=== PATIENT | male | born 1995 | race Caucasian/White ===

== ENCOUNTER 2016-08-25 11:31 | Inpatient (IN) | payer OTHER ==
[2016-08-25 12:35] VITALS: BMI 26.3
--- NOTE | 2016-08-25 14:15 | HP ---
Admission [facility] Chief Complaint: I am here to detox. Allergies/Adverse Reactions: Allergies Allergy/AdvReac Type Severity Reaction Status Date / Time Penicillins Allergy Intermediate Hives Verified 08/25/16 12:45 History of Present Illness: pt is a 20yr old male with a history of alcohol and k2 dependence seeking detox for treatment. Exam Limitations: No Limitations - Ebola screening Have you traveled outside of the country in the last 21 days: No Have you had contact with anyone from an Ebola affected area: No Have you been sick,other than usual withdrawal symptoms: No - Review of Systems Constitutional: No Symptoms Reported EENT: reports: No Symptoms Reported Respiratory: reports: No Symptoms reported Cardiac: reports: No Symptoms Reported GI: reports: Poor Fluid Intake : reports: No Symptoms Reported Musculoskeletal: reports: No Symptoms Reported Integumentary: reports: Flushing, Sweating Neuro: reports: Tingling, Tremors Endocrine: reports: No Symptoms Reported Hematology: reports: No Symptoms Reported Psychiatric: reports: Judgement Intact, Mood/Affect Appropiate, Orientated x3, Agitated, Anxious, Depressed Other Systems: Reviewed and Negative Patient History - Patient Medical History Hx Anemia: No Hx Asthma: No Hx Chronic Obstructive Pulmonary Disease (COPD): No Hx Cancer: No Hx Cardiac Disorders: No Hx Congestive Heart Failure: No Hx Hypertension: No Hx Hypercholesterolemia: No Hx Pacemaker: No HX Cerebrovascular Accident: No Hx Seizures: No Hx Diabetes: No Hx Gastrointestinal Disorders: No Hx Liver Disease: No Hx Genitourinary Disorders: No Hx Sexually Transmitted Disorders: No Hx Renal Disease (ESRD): No Hx Thyroid Disease: No Hx Human Immunodeficiency Virus (HIV): No (negative) Hx Hepatitis C: No (negative) Hx Depression: No Hx Suicide Attempt: Yes (tried to OD on pills 2-3yrs ago, denies any S/H ideation today.) Hx Bipolar Disorder: Yes Hx Schizophrenia: No - Patient Surgical History Past Surgical History: No - PPD History Previous Implant?: Yes Documented Results: Negative w/o proof Implanted On Prior [facility] Admission?: No PPD to be Administered?: Yes - Reproductive History Patient is a Female of Child Bearing Age (11 -55 yrs old): No - Smoking Cessation Smoking history: Current every day smoker Have you smoked in the past 12 months: Yes Aproximately how many cigarettes per day: 40 Hx Chewing Tobacco Use: No Initiated information on smoking cessation: Yes 'Breaking Loose' booklet given: 08/25/16 - Substance & Tx. History Hx Alcohol Use: Yes Hx Substance Use: No Substance Use Type: Alcohol Hx Substance Use Treatment: Yes - Substances Abused Alcohol Route: Oral Frequency: Daily Amount used: vodka(1/5) Age of first use: 14 Date of Last Use: 08/25/16 K2 Route: Smoking Frequency: Daily Amount used: $7 Age of first use: 14 Date of Last Use: 08/25/16 Family Disease History - Family Disease History Family History: Denies Admission Physical Exam [facility] - Vital Signs Vital Signs: Vital Signs - 24 hr 08/25/16 12:32 Temperature 96.1 F L Pulse Rate 71 Respiratory 16 Rate Blood Pressure 120/71 - Physical General Appearance: Yes: Appropriately Dressed, Moderate Distress, Tremorous, Irritable, Sweating, Anxious HEENTM: Yes: Normal Voice Respiratory: Yes: Lungs Clear, Normal Breath Sounds, No Respiratory Distress Neck: Yes: No masses,lesions,Nodules Breast: Yes: Within Normal Limits Cardiology: Yes: Regular Rhythm, Regular Rate, S1, S2 Abdominal: Yes: Normal Bowel Sounds Genitourinary: Yes: Within Normal Limits Back: Yes: Normal Inspection Musculoskeletal: Yes: full range of Motion, Back pain Extremities: Yes: Normal Capillary Refill, Normal Inspection, Tremors Neurological: Yes: Fully Oriented, Alert, Normal Response Integumentary: Yes: Normal Color, Diaphoresis Lymphatic: Yes: Within Normal Limits - Diagnostic (1) Alcohol dependence with uncomplicated withdrawal Current Visit: Yes Status: Chronic (2) Nicotine dependence Current Visit: Yes Status: Chronic Qualifiers: Nicotine product type: cigarettes Substance use status: uncomplicated Qualified Code(s): F17.210 - Nicotine dependence, cigarettes, uncomplicated Cleared for Admission [facility] - Detox or Rehab [facility] Level of Care: Medically Managed Detox Regimen/Protocol: Librium [facility] Breath Alcohol Content Breath Alcohol Content: 0.013 Urine Drug Screen - Results Drug Screen Negative: Yes
[2016-08-25] MEDS ORDERED: MENTHOL/PHENOL 1 EACH UD MM PRN (14:23)
[2016-08-25] MEDS ORDERED: MAGNESIUM CITRATE 300 ML BOTTLE PO PRN (14:23)
[2016-08-25] MEDS ORDERED: diphenhydrAMINE HCL 50 MG CAPSULE PO PRN (14:23)
[2016-08-25] MEDS ORDERED: guaiFENesin/D-METHORPHAN HB 10 ML UNIT-DOSE CUPS PO PRN (14:23)
[2016-08-25] MEDS ORDERED: ACETAMINOPHEN 325 MG TABLET (FP) PO PRN (14:23)
[2016-08-25] MEDS ORDERED: MAG HYDROX/AL HYDROX/SIMETH 30 ML UNIT-DOSE CUP PO PRN (14:23)
[2016-08-25] MEDS ORDERED: MAGNESIUM HYDROX 2400MG/30ML ORAL SUSPENSION 30 ML CUP PO PRN (14:23)
[2016-08-25] MEDS ORDERED: hydrOXYzine PAMOATE 50 MG CAPSULE (FP) PO PRN (14:23)
[2016-08-25] MEDS ORDERED: P-EPHED 60MG/TRIPROLIDI 2.5MG TABLET PO PRN (14:23)
[2016-08-25] MEDS ORDERED: LOPERAMIDE HCL 2 MG CAPSULE PO PRN (14:23)
[2016-08-25] MEDS ORDERED: chlordiazePOXIDE HCL 25 MG CAPSULE PO PRN (14:23)
[2016-08-25] MEDS ORDERED: IBUPROFEN 400 MG TABLET (FP) PO PRN (14:23)
[2016-08-25] MEDS ORDERED: chlordiazePOXIDE HCL 25 MG CAPSULE PO ONE (14:26)
[2016-08-25] MEDS: chlordiazePOXIDE HCL 25 MG CAPSULE PO SCH ×2 (17:15→22:31)
--- NOTE | 2016-08-25 17:57 | CONSULT ---
[facility] Psychiatric Consult - Data Date of interview: 08/25/16 Admission source: [facility] Identifying data: First admission to [facility] for this 20 y/o male seeking detox treatment for alcohol and marijuana (K2) dependence.Patient is single witout children,domiciled,unemployed and dependent on his mother for financial support. Substance Abuse History: - Smoking Cessation. Smoking history: Current every day smoker. Have you smoked in the past 12 months: Yes. Aproximately how many cigarettes per day: 40. Hx Chewing Tobacco Use: No. Initiated information on smoking cessation: Yes. 'Breaking Loose' booklet given: 08/25/16. - Substance & Tx. History. Hx Alcohol Use: Yes. Hx Substance Use: No. Substance Use Type : Alcohol. Hx Substance Use Treatment: Yes. - Substances Abused. Alcohol. Route: Oral. Frequency: Daily. Amount used: vodka(1/5). Age of first use: 14. Date of Last Use: 08/25/16. K2. Route: Smoking. Frequency: Daily. Amount used: $7. Age of first use: 14. Date of Last Use: 08/25/16. Confirmed by patient. Medical History: Patient denies medical problems. Psychiatric History: Patient admits to a history of five psychiatric hospitalizations.Known to [facility].Diagnosed with Bipolar Disorder.Maintained on seroquel 200 mg/hs.Mr De Guzman reports total non- adherence to psychiatric aftercare.No current psychiatric OPD care providers.Patient informs of a suicide attempt at age 16 (means not disclosed) .Mr De Guzman is a mildly sedated historian. Physical/Sexual Abuse/Trauma History: Patient denies. Additional Comment: Drug Screen is negative. Mental Status Exam - Mental Status Exam Alert and Oriented to: Time, Place, Person Cognitive Function: Grossly Intact Patient Appearance: Well Groomed Mood: Withdrawn Affect: Constricted Patient Behavior: Sedated (lightly), Fatigued Speech Pattern: Appropriate, Delayed Voice Loudness: Moderately Soft/Quiet Thought Process: Goal Oriented Thought Disorder: Not Present Hallucinations: Denies Suicidal Ideation: Denies Homicidal Ideation: Denies Insight/Judgement: Poor Sleep: Poorly, Difficulty falling asleep Appetite: Good Muscle strength/Tone: Normal Gait/Station: Normal Psychiatric Findings - Problem List ([place] 1, 2,3) (1) Alcohol dependence with uncomplicated withdrawal Current Visit: Yes Status: Acute (2) Nicotine dependence Current Visit: Yes Status: Chronic Qualifiers: Nicotine product type: cigarettes Substance use status: uncomplicated Qualified Code(s): F17.210 - Nicotine dependence, cigarettes, uncomplicated (3) Substance induced mood disorder Current Visit: Yes Status: Acute (4) Bipolar disorder Current Visit: Yes Status: Chronic Comment: As per self-report. - Initial Treatment Plan Initial Treatment Plan: Psychoeducation is deferred (until sedation is lifted) .Detoxification in progress.Seroquel 200 mg po hs.Side effects/benefits discussed with patient.He is eager to resume this medication.Patient is in agreement with this careplan.Observation.
[2016-08-25 19:14] LABS: URINE APPEARANCE CLEAR; URINE BILIRUBIN NEGATIVE (NEGATIVE); URINE BLOOD NEGATIVE (NEGATIVE); URINE COLOR LTYELLOW; URINE GLUCOSE (UA) NEGATIVE (NEGATIVE); URINE KETONE NEGATIVE (NEGATIVE); URINE LEUK ESTERASE NEGATIVE (NEGATIVE); URINE NITRITE NEGATIVE (NEGATIVE); URINE PROTEIN NEGATIVE (NEGATIVE); URINE UROBILINOGEN NEGATIVE E.U./dl (0.2-1.0)
[2016-08-25] MEDS: THIAMINE HCL 100 MG TABLET (FP) PO SCH (22:31)
[2016-08-25 22:42] LABS: HIV 1 & 2 AB NEGATIVE; HIV 1 AGp24 NEGATIVE
[2016-08-26] MEDS: chlordiazePOXIDE HCL 25 MG CAPSULE PO SCH ×4 (05:46→22:26)
[2016-08-26 09:47] LABS: MCH 30.3 pg (25.7-33.7); MCHC 33.3 g/dl (32.0-35.9); MEAN PLT VOLUME 10.3 fl (7.5-11.1); PLATELET COUNT 159 K/MM3 (134-434); RDW 13.7 % (11.9-15.9)
[2016-08-26] MEDS: NICOTINE 21 MG/24 HOURS TOPICAL PATCH TD SCH (10:20)
[2016-08-26] MEDS: PRENATAL VITAMINS W/ FOLIC ACID TABLET (FP) PO SCH (10:20)
[2016-08-26 10:38] LABS: ALBUMIN 4.6 g/dl (3.4-5.0); ALK PHOS 55 U/L (45-117); ANION GAP 9 (8-16); BILIRUBIN,TOTAL 0.4 mg/dL (0.2-1.0); CALCIUM 9.1 mg/dL (8.5-10.1); CO2 28 mmol/L (21-32); COCKROFT - GAULT 181.43; CREATININE 0.7 mg/dL (0.7-1.3); GLUCOSE,RANDOM 78 mg/dL (74-106); SGOT/AST 12 U/L (15-37); SGPT/ALT 25 U/L (12-78); TOT PROT 7.3 g/dl (6.4-8.2)
--- NOTE | 2016-08-26 11:23 | EKG ---
Test Reason : Blood Pressure : / mmHG Vent. Rate : 070 BPM Atrial Rate : 070 BPM P-R Int : 148 ms QRS Dur : 094 ms QT Int : 402 ms P-R-T Axes : 001 065 036 degrees QTc Int : 434 ms NORMAL SINUS RHYTHM NORMAL ECG NO PREVIOUS ECGS AVAILABLE BASELINE ARTIFACT Confirmed by JOSEF KEY, ANASTACIA ([id number]) on 08/26/2016 11:22:21 AM Referred By: Confirmed By:ANASTACIA BAHENA MD
--- NOTE | 2016-08-26 11:32 | PN ---
S CIWA - CIWA Score Nausea/Vomitin-No Nausea/No Vomiting Muscle Tremors: 3 Anxiety: 4-Mod. Anxious/Guarded Agitation: 4-Moderately Restless Paroxysmal Sweats: 3 Orientation: 0-Oriented Tacttile Disturbances: 0-None Auditory Disturbances: 0-None Visual Disturbances: 0-None Headache: 0-None Present CIWA-Ar Total Score: 14 BHS Progress Note (SOAP) Subjective: Anxiety,tremors,sweating,interrupted sleep,restless. Objective: 08/26/16 11:31 Vital Signs - 8 hr 08/26/16 08/26/16 06:41 09:54 Temperature 96.6 F L 96.6 F L Pulse Rate 65 73 Respiratory 16 20 Rate Blood Pressure 103/67 101/68 Laboratory Tests 08/25/16 08/25/16 08/26/16 13:55 15:00 06:00 WBC 7.0 RBC 4.84 Hgb 14.6 Hct 44.0 MCV 91.0 MCHC 33.3 RDW 13.7 Plt Count 159 MPV 10.3 Sodium Potassium Chloride Carbon Dioxide Anion Gap BUN Creatinine Creat Clearance w eGFR Random Glucose Calcium Total Bilirubin AST ALT Alkaline Phosphatase Total Protein Albumin Urine Color Ltyellow Urine Appearance Clear Urine pH 6.0 Ur Specific [place] 1.020 Urine Protein Negative Urine Glucose (UA) Negative Urine Ketones Negative Urine Blood Negative Urine Nitrite Negative Urine Bilirubin Negative Urine Urobilinogen Negative Ur Leukocyte Esterase Negative RPR Titer HIV 1&2 Antibody Screen Negative HIV P24 Antigen Negative 08/26/16 08/26/16 06:00 06:00 WBC RBC Hgb Hct MCV MCHC RDW Plt Count MPV Sodium 139 Potassium 4.5 Chloride 102 Carbon Dioxide 28 Anion Gap 9 BUN 14 Creatinine 0.7 Creat Clearance w eGFR > 60 Random Glucose 78 Calcium 9.1 Total Bilirubin 0.4 AST 12 L ALT 25 Alkaline Phosphatase 55 Total Protein 7.3 Albumin 4.6 Urine Color Urine Appearance Urine pH Ur Specific [place] Urine Protein Urine Glucose (UA) Urine Ketones Urine Blood Urine Nitrite Urine Bilirubin Urine Urobilinogen Ur Leukocyte Esterase RPR Titer Nonreactive HIV 1&2 Antibody Screen HIV P24 Antigen labs noted Assessment: 08/26/16 11:31 Withdrawal sx. Plan: Continue detox
[2016-08-26] MEDS: THIAMINE HCL 100 MG TABLET (FP) PO SCH (22:26)
[2016-08-27] MEDS: chlordiazePOXIDE HCL 25 MG CAPSULE PO SCH ×2 (05:33→10:22)
--- NOTE | 2016-08-27 10:18 | PN ---
[facility] CIWA - CIWA Score Nausea/Vomitin Muscle Tremors: 3 Anxiety: 3 Agitation: 2 Paroxysmal Sweats: 1-Minimal Palms Moist Orientation: 0-Oriented Tacttile Disturbances: 1-Very Mild Itch/Numbness Auditory Disturbances: 1-Very Mild Visual Disturbances: 1-Very Mild Sensitivity Headache: 2-Mild CIWA-Ar Total Score: 17 BHS Progress Note (SOAP) Subjective: ALERT,IRRITABLE,ANXIOUS,INTERRUPTED SLEEP,TREMOR Objective: 08/27/16 10:17 Vital Signs Temperature 95.3 F L 08/27/16 09:38 Pulse Rate 72 08/27/16 09:38 Respiratory Rate 18 08/27/16 09:38 Blood Pressure 96/62 08/27/16 09:38 O2 Sat by Pulse Oximetry (%) Laboratory Last Values WBC 7.0 K/mm3 (4.0-10.0) 08/26/16 06:00 RBC 4.84 M/mm3 (4.00-5.60) 08/26/16 06:00 Hgb 14.6 GM/dL (11.7-16.9) 08/26/16 06:00 Hct 44.0 % (35.4-49) 08/26/16 06:00 MCV 91.0 fl (80-96) 08/26/16 06:00 MCHC 33.3 g/dl (32.0-35.9) 08/26/16 06:00 RDW 13.7 % (11.9-15.9) 08/26/16 06:00 Plt Count 159 K/MM3 (134-434) 08/26/16 06:00 MPV 10.3 fl (7.5-11.1) 08/26/16 06:00 Sodium 139 mmol/L (136-145) 08/26/16 06:00 Potassium 4.5 mmol/L (3.5-5.1) 08/26/16 06:00 Chloride 102 mmol/L (98-107) 08/26/16 06:00 Carbon Dioxide 28 mmol/L (21-32) 08/26/16 06:00 Anion Gap 9 (8-16) 08/26/16 06:00 BUN 14 mg/dL (7-18) 08/26/16 06:00 Creatinine 0.7 mg/dL (0.7-1.3) 08/26/16 06:00 Creat Clearance w eGFR > 60 (>60) 08/26/16 06:00 Random Glucose 78 mg/dL (74-106) 08/26/16 06:00 Calcium 9.1 mg/dL (8.5-10.1) 08/26/16 06:00 Total Bilirubin 0.4 mg/dL (0.2-1.0) 08/26/16 06:00 AST 12 U/L (15-37) L 08/26/16 06:00 ALT 25 U/L (12-78) 08/26/16 06:00 Alkaline Phosphatase 55 U/L (45-117) 08/26/16 06:00 Total Protein 7.3 g/dl (6.4-8.2) 08/26/16 06:00 Albumin 4.6 g/dl (3.4-5.0) 08/26/16 06:00 Urine Color Ltyellow 08/25/16 15:00 Urine Appearance Clear 08/25/16 15:00 Urine pH 6.0 (5.0-8.0) 08/25/16 15:00 Ur Specific [place] 1.020 (1.005-1.025) 08/25/16 15:00 Urine Protein Negative (NEGATIVE) 08/25/16 15:00 Urine Glucose (UA) Negative (NEGATIVE) 08/25/16 15:00 Urine Ketones Negative (NEGATIVE) 08/25/16 15:00 Urine Blood Negative (NEGATIVE) 08/25/16 15:00 Urine Nitrite Negative (NEGATIVE) 08/25/16 15:00 Urine Bilirubin Negative (NEGATIVE) 08/25/16 15:00 Urine Urobilinogen Negative E.U./dl (0.2-1.0) 08/25/16 15:00 Ur Leukocyte Esterase Negative (NEGATIVE) 08/25/16 15:00 RPR Titer Nonreactive (NONREACTIVE) 08/26/16 06:00 HIV 1&2 Antibody Screen Negative 08/25/16 13:55 HIV P24 Antigen Negative 08/25/16 13:55 Assessment: 08/27/16 10:17 WITHDRAWAL SYMPTOM Plan: CONTINUE DETOX
[2016-08-27] MEDS: PRENATAL VITAMINS W/ FOLIC ACID TABLET (FP) PO SCH (10:22)
[2016-08-27] MEDS: NICOTINE 21 MG/24 HOURS TOPICAL PATCH TD SCH (10:22)
[2016-08-27] MEDS: chlordiazePOXIDE 5 MG CAPSULE PO SCH ×2 (17:15→22:36)
[2016-08-27] MEDS: THIAMINE HCL 100 MG TABLET (FP) PO SCH (22:36)
[2016-08-28] MEDS: chlordiazePOXIDE 5 MG CAPSULE PO SCH ×2 (05:44→10:23)
[2016-08-28] MEDS: PRENATAL VITAMINS W/ FOLIC ACID TABLET (FP) PO SCH (10:23)
[2016-08-28] MEDS: NICOTINE 21 MG/24 HOURS TOPICAL PATCH TD SCH (10:24)
--- NOTE | 2016-08-28 14:35 | PN ---
BHS Progress Note (SOAP) Subjective: Tremors, H/A. Objective: PT. A & O X 3, OBSERVED AMBULATING ON UNIT. 08/28/16 14:32 Vital Signs Temperature 97.6 F 08/28/16 13:20 Pulse Rate 77 08/28/16 13:20 Respiratory Rate 18 08/28/16 13:20 Blood Pressure 106/66 08/28/16 13:20 O2 Sat by Pulse Oximetry (%) Laboratory Last Values WBC 7.0 K/mm3 (4.0-10.0) 08/26/16 06:00 RBC 4.84 M/mm3 (4.00-5.60) 08/26/16 06:00 Hgb 14.6 GM/dL (11.7-16.9) 08/26/16 06:00 Hct 44.0 % (35.4-49) 08/26/16 06:00 MCV 91.0 fl (80-96) 08/26/16 06:00 MCHC 33.3 g/dl (32.0-35.9) 08/26/16 06:00 RDW 13.7 % (11.9-15.9) 08/26/16 06:00 Plt Count 159 K/MM3 (134-434) 08/26/16 06:00 MPV 10.3 fl (7.5-11.1) 08/26/16 06:00 Sodium 139 mmol/L (136-145) 08/26/16 06:00 Potassium 4.5 mmol/L (3.5-5.1) 08/26/16 06:00 Chloride 102 mmol/L (98-107) 08/26/16 06:00 Carbon Dioxide 28 mmol/L (21-32) 08/26/16 06:00 Anion Gap 9 (8-16) 08/26/16 06:00 BUN 14 mg/dL (7-18) 08/26/16 06:00 Creatinine 0.7 mg/dL (0.7-1.3) 08/26/16 06:00 Creat Clearance w eGFR > 60 (>60) 08/26/16 06:00 Random Glucose 78 mg/dL (74-106) 08/26/16 06:00 Calcium 9.1 mg/dL (8.5-10.1) 08/26/16 06:00 Total Bilirubin 0.4 mg/dL (0.2-1.0) 08/26/16 06:00 AST 12 U/L (15-37) L 08/26/16 06:00 ALT 25 U/L (12-78) 08/26/16 06:00 Alkaline Phosphatase 55 U/L (45-117) 08/26/16 06:00 Total Protein 7.3 g/dl (6.4-8.2) 08/26/16 06:00 Albumin 4.6 g/dl (3.4-5.0) 08/26/16 06:00 Urine Color Ltyellow 08/25/16 15:00 Urine Appearance Clear 08/25/16 15:00 Urine pH 6.0 (5.0-8.0) 08/25/16 15:00 Ur Specific [place] 1.020 (1.005-1.025) 08/25/16 15:00 Urine Protein Negative (NEGATIVE) 08/25/16 15:00 Urine Glucose (UA) Negative (NEGATIVE) 08/25/16 15:00 Urine Ketones Negative (NEGATIVE) 08/25/16 15:00 Urine Blood Negative (NEGATIVE) 08/25/16 15:00 Urine Nitrite Negative (NEGATIVE) 08/25/16 15:00 Urine Bilirubin Negative (NEGATIVE) 08/25/16 15:00 Urine Urobilinogen Negative E.U./dl (0.2-1.0) 08/25/16 15:00 Ur Leukocyte Esterase Negative (NEGATIVE) 08/25/16 15:00 RPR Titer Nonreactive (NONREACTIVE) 08/26/16 06:00 HIV 1&2 Antibody Screen Negative 08/25/16 13:55 HIV P24 Antigen Negative 08/25/16 13:55 LABS NOTED. Assessment: 08/28/16 14:34 WITHDRAWAL SYMPTOMS. Plan: CONTINUE DETOX. ADVISED PATIENT TO FOLLOW-UP WITH [facility] AFTER DISCHARGE FROM DETOX FOR GENERAL MEDICAL ASSESSMENT AND FOR ABNORMAL ADMISSION LAB VALUES.
[2016-08-28] MEDS: chlordiazePOXIDE HCL 10 MG CAPSULE PO SCH ×2 (17:29→22:45)
[2016-08-28] MEDS: THIAMINE HCL 100 MG TABLET (FP) PO SCH (22:45)
[2016-08-29] MEDS: chlordiazePOXIDE HCL 10 MG CAPSULE PO SCH ×2 (05:53→10:19)
[2016-08-29 10:09] VITALS: BP 120/68; PULSE 79; TEMP 96.4
[2016-08-29] MEDS: PRENATAL VITAMINS W/ FOLIC ACID TABLET (FP) PO SCH (10:19)
[2016-08-29] MEDS: NICOTINE 21 MG/24 HOURS TOPICAL PATCH TD SCH (10:20)
--- NOTE | 2016-08-29 15:13 | DS ---
[facility] Detox Discharge Summary Admission Date: 08/25/16 Discharge Date: 08/29/16 - History Present History: Alcohol Dependence Additional Comments: ADVISED PATIENT TO FOLLOW-UP WITH [facility] / REHAB MEDICAL PROVIDER AFTER DISCHARGE FROM DETOX FOR GENERAL MEDICAL ASSESSMENT. - Physical Exam Results Vital Signs: Vital Signs Temperature 96.4 F L 08/29/16 10:08 Pulse Rate 79 08/29/16 10:08 Respiratory Rate 18 08/29/16 10:08 Blood Pressure 120/68 08/29/16 10:08 O2 Sat by Pulse Oximetry (%) Pertinent Admission Physical Exam Findings: WITHDRAWAL SYMPTOMS. Laboratory Last Values WBC 7.0 K/mm3 (4.0-10.0) 08/26/16 06:00 RBC 4.84 M/mm3 (4.00-5.60) 08/26/16 06:00 Hgb 14.6 GM/dL (11.7-16.9) 08/26/16 06:00 Hct 44.0 % (35.4-49) 08/26/16 06:00 MCV 91.0 fl (80-96) 08/26/16 06:00 MCHC 33.3 g/dl (32.0-35.9) 08/26/16 06:00 RDW 13.7 % (11.9-15.9) 08/26/16 06:00 Plt Count 159 K/MM3 (134-434) 08/26/16 06:00 MPV 10.3 fl (7.5-11.1) 08/26/16 06:00 Sodium 139 mmol/L (136-145) 08/26/16 06:00 Potassium 4.5 mmol/L (3.5-5.1) 08/26/16 06:00 Chloride 102 mmol/L (98-107) 08/26/16 06:00 Carbon Dioxide 28 mmol/L (21-32) 08/26/16 06:00 Anion Gap 9 (8-16) 08/26/16 06:00 BUN 14 mg/dL (7-18) 08/26/16 06:00 Creatinine 0.7 mg/dL (0.7-1.3) 08/26/16 06:00 Creat Clearance w eGFR > 60 (>60) 08/26/16 06:00 Random Glucose 78 mg/dL (74-106) 08/26/16 06:00 Calcium 9.1 mg/dL (8.5-10.1) 08/26/16 06:00 Total Bilirubin 0.4 mg/dL (0.2-1.0) 08/26/16 06:00 AST 12 U/L (15-37) L 08/26/16 06:00 ALT 25 U/L (12-78) 08/26/16 06:00 Alkaline Phosphatase 55 U/L (45-117) 08/26/16 06:00 Total Protein 7.3 g/dl (6.4-8.2) 08/26/16 06:00 Albumin 4.6 g/dl (3.4-5.0) 08/26/16 06:00 Urine Color Ltyellow 08/25/16 15:00 Urine Appearance Clear 08/25/16 15:00 Urine pH 6.0 (5.0-8.0) 08/25/16 15:00 Ur Specific [place] 1.020 (1.005-1.025) 08/25/16 15:00 Urine Protein Negative (NEGATIVE) 08/25/16 15:00 Urine Glucose (UA) Negative (NEGATIVE) 08/25/16 15:00 Urine Ketones Negative (NEGATIVE) 08/25/16 15:00 Urine Blood Negative (NEGATIVE) 08/25/16 15:00 Urine Nitrite Negative (NEGATIVE) 08/25/16 15:00 Urine Bilirubin Negative (NEGATIVE) 08/25/16 15:00 Urine Urobilinogen Negative E.U./dl (0.2-1.0) 08/25/16 15:00 Ur Leukocyte Esterase Negative (NEGATIVE) 08/25/16 15:00 RPR Titer Nonreactive (NONREACTIVE) 08/26/16 06:00 HIV 1&2 Antibody Screen Negative 08/25/16 13:55 HIV P24 Antigen Negative 08/25/16 13:55 LABS NOTED. - Treatment Hospital Course: Detox Protocol Followed, Detoxed Safely, Responded well, Discharged Condition Good, Rehab Referral Accepted Patient has Accepted a Rehab Referral to: YES - [facility]. - Medication Discharge Medications: Ambulatory Orders Quetiapine Fumarate [Seroquel -] 400 mg PO BID 08/25/16 - AMA Did Patient Leave Against Medical Advice: No
== END 2016-08-29 11:17 | disposition other institution (70) | DRG 775 ==
LOC: YASAS 11:31 → Y3N 13:52
PROVIDERS: ADMIT Internal Medicine Addiction Medicine; ATTEND Internal Medicine Addiction Medicine
PROC: HZ2ZZZZ Detoxification Services for Substance Abuse Treatment (ICD-10-PCS; principal; 2016-08-29)
DX: F10.230 Alcohol dependence with withdrawal, uncomplicated (principal); F17.210 Nicotine dependence, cigarettes, uncomplicated; F19.24 Other psychoactive substance dependence with psychoactive substance-induced mood disorder; F31.9 Bipolar disorder, unspecified
CPT/HCPCS: 36415; 80053; 81003; 85027; 86593; 87389; 93005; 93010

== ENCOUNTER 2016-08-29 11:29 | Inpatient (IN) | payer OTHER ==
[2016-08-29 14:13] VITALS: BMI 26.6
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
[2016-08-29] MEDS ORDERED: MENTHOL/PHENOL 1 EACH UD MM PRN (16:23)
[2016-08-29] MEDS ORDERED: MAG HYDROX/AL HYDROX/SIMETH 30 ML UNIT-DOSE CUP PO PRN (16:23)
[2016-08-29] MEDS ORDERED: ACETAMINOPHEN 325 MG TABLET (FP) PO PRN (16:23)
[2016-08-29] MEDS ORDERED: P-EPHED 60MG/TRIPROLIDI 2.5MG TABLET PO PRN (16:23)
[2016-08-29] MEDS ORDERED: LOPERAMIDE HCL 2 MG CAPSULE PO PRN (16:23)
[2016-08-29] MEDS ORDERED: NICOTINE 14 MG/24 HOURS TOPICAL PATCH TD PRN (16:23)
[2016-08-29] MEDS ORDERED: MAGNESIUM HYDROX 2400MG/30ML ORAL SUSPENSION 30 ML CUP PO PRN (16:23)
[2016-08-29] MEDS ORDERED: diphenhydrAMINE HCL 50 MG CAPSULE PO PRN (16:23)
[2016-08-29] MEDS ORDERED: guaiFENesin/D-METHORPHAN HB 10 ML UNIT-DOSE CUPS PO PRN (16:23)
[2016-08-29] MEDS ORDERED: IBUPROFEN 400 MG TABLET (FP) PO PRN (16:23)
[2016-08-29] MEDS ORDERED: MAGNESIUM CITRATE 300 ML BOTTLE PO PRN (16:23)
[2016-08-29] MEDS ORDERED: NICOTINE POLACRILEX 2 MG GUM BUC PRN (16:23)
--- NOTE | 2016-08-29 16:23 | HP ---
[facility] Rehab Assess/Revision - Admission History Admitted to Rehab from: [facility] Date of Admission to Rehab: 08/29/16 - Vital signs Vital Signs: Vital Signs Period Temp Pulse Resp BP Sys/Hodgson Pulse Ox Last 24 Hr 98.5 F 75 16 121/70 - Findings Detox History & Physical reviewed: Yes Concur with findings: Yes Comments/Additional Findings: transferred from detox to rehab admission as per protocol
[2016-08-29] MEDS: THIAMINE HCL 100 MG TABLET (FP) PO SCH (21:34)
[2016-08-29] MEDS: QUEtiapine FUMARATE 400 MG TABLET PO SCH (21:34)
[2016-08-29] MEDS ORDERED: QUEtiapine FUMARATE 400 MG TABLET PO SCH (22:00)
[2016-08-30] MEDS: PRENATAL VITAMINS W/ FOLIC ACID TABLET (FP) PO SCH (10:18)
[2016-08-30] MEDS: QUEtiapine FUMARATE 400 MG TABLET PO SCH (21:29)
[2016-08-30] MEDS: THIAMINE HCL 100 MG TABLET (FP) PO SCH (21:29)
[2016-08-31] MEDS: PRENATAL VITAMINS W/ FOLIC ACID TABLET (FP) PO SCH (11:00)
[2016-08-31] MEDS: QUEtiapine FUMARATE 400 MG TABLET PO SCH (21:27)
[2016-08-31] MEDS: THIAMINE HCL 100 MG TABLET (FP) PO SCH (21:27)
[2016-09-01] MEDS: PRENATAL VITAMINS W/ FOLIC ACID TABLET (FP) PO SCH (10:53)
[2016-09-01] MEDS: THIAMINE HCL 100 MG TABLET (FP) PO SCH (21:50)
[2016-09-01] MEDS: QUEtiapine FUMARATE 400 MG TABLET PO SCH (21:50)
[2016-09-02] MEDS: PRENATAL VITAMINS W/ FOLIC ACID TABLET (FP) PO SCH (10:12)
[2016-09-02] MEDS: QUEtiapine FUMARATE 400 MG TABLET PO SCH (21:24)
[2016-09-02] MEDS: THIAMINE HCL 100 MG TABLET (FP) PO SCH (21:24)
[2016-09-03] MEDS: PRENATAL VITAMINS W/ FOLIC ACID TABLET (FP) PO SCH (10:19)
[2016-09-03] MEDS: THIAMINE HCL 100 MG TABLET (FP) PO SCH (21:27)
[2016-09-03] MEDS: QUEtiapine FUMARATE 400 MG TABLET PO SCH (21:27)
[2016-09-04] MEDS: PRENATAL VITAMINS W/ FOLIC ACID TABLET (FP) PO SCH (10:31)
[2016-09-04] MEDS: QUEtiapine FUMARATE 400 MG TABLET PO SCH (21:32)
[2016-09-04] MEDS: THIAMINE HCL 100 MG TABLET (FP) PO SCH (21:32)
[2016-09-05] MEDS: PRENATAL VITAMINS W/ FOLIC ACID TABLET (FP) PO SCH (10:11)
[2016-09-05] MEDS: THIAMINE HCL 100 MG TABLET (FP) PO SCH (21:31)
[2016-09-05] MEDS: QUEtiapine FUMARATE 400 MG TABLET PO SCH (21:32)
[2016-09-06] MEDS: PRENATAL VITAMINS W/ FOLIC ACID TABLET (FP) PO SCH (10:03)
[2016-09-06] MEDS: THIAMINE HCL 100 MG TABLET (FP) PO SCH (21:37)
[2016-09-06] MEDS: QUEtiapine FUMARATE 400 MG TABLET PO SCH (21:37)
[2016-09-07] MEDS: PRENATAL VITAMINS W/ FOLIC ACID TABLET (FP) PO SCH (10:15)
[2016-09-07] MEDS: THIAMINE HCL 100 MG TABLET (FP) PO SCH (21:34)
[2016-09-07] MEDS: QUEtiapine FUMARATE 400 MG TABLET PO SCH (21:34)
[2016-09-08] MEDS: PRENATAL VITAMINS W/ FOLIC ACID TABLET (FP) PO SCH (10:15)
[2016-09-08] MEDS: THIAMINE HCL 100 MG TABLET (FP) PO SCH (21:44)
[2016-09-08] MEDS: QUEtiapine FUMARATE 400 MG TABLET PO SCH (21:44)
[2016-09-09] MEDS: PRENATAL VITAMINS W/ FOLIC ACID TABLET (FP) PO SCH (10:12)
[2016-09-09] MEDS: THIAMINE HCL 100 MG TABLET (FP) PO SCH (21:24)
[2016-09-09] MEDS: QUEtiapine FUMARATE 400 MG TABLET PO SCH (21:24)
[2016-09-10] MEDS: PRENATAL VITAMINS W/ FOLIC ACID TABLET (FP) PO SCH (10:22)
[2016-09-10] MEDS: QUEtiapine FUMARATE 400 MG TABLET PO SCH (21:26)
[2016-09-10] MEDS: THIAMINE HCL 100 MG TABLET (FP) PO SCH (21:26)
[2016-09-11 07:10] VITALS: TEMP 97.8
[2016-09-11] MEDS: PRENATAL VITAMINS W/ FOLIC ACID TABLET (FP) PO SCH (10:04)
[2016-09-11] MEDS: THIAMINE HCL 100 MG TABLET (FP) PO SCH (21:34)
[2016-09-11] MEDS: QUEtiapine FUMARATE 400 MG TABLET PO SCH (21:34)
[2016-09-12 06:46] VITALS: BP 132/71; PULSE 84
--- NOTE | 2016-09-12 09:33 | PN ---
Psychiatric Progress Note Vital Signs: Vital Signs Period Temp Pulse Resp BP Sys/Ohdgson Pulse Ox Last 24 Hr 97.8 F 84 16-16 132/71 Date of Session: 09/12/16 Chief Complaint:: Discharge Note HPI: Patient addressing Alcohol and Cannabis Dependence comorbid with Nicotine Dependence, Bipolar Disorder and Substance-Induced Mood Disorder Current Medications: Active Medications Generic Name Dose Route Start Last Admin Trade Name Freq PRN Reason Stop Dose Admin Acetaminophen 650 mg 08/29/16 16:23 Tylenol - PO Q4H PRN FEVER OR PAIN Al Hydroxide/Mg Hydroxide 30 ml 08/29/16 16:23 08/30/16 21:31 Mylanta Oral Suspension - PO 30 ml Q6H PRN Administration DYSPEPSIA Diphenhydramine HCl 50 mg 08/29/16 16:23 Benadryl - PO HSMR1 PRN FOR ITCHING Eucalyptus/Menthol/Phenol/Sorbitol 1 each 08/29/16 16:23 Cepastat Lozenge - MM Q4H PRN SORE THROAT Guaifenesin 10 ml 08/29/16 16:23 Robitussin Dm - PO Q6H PRN COUGH Ibuprofen 400 mg 08/29/16 16:23 Motrin - PO Q6H PRN PAIN Loperamide HCl 4 mg 08/29/16 16:23 Imodium - PO Q6H PRN DIARRHEA Magnesium Hydroxide 30 ml 08/29/16 16:23 Milk Of Magnesia - PO DAILY PRN CONSTIPATION Nicotine 14 mg 08/29/16 16:23 Nicoderm Patch - TD DAILY PRN WITHDRAWAL(CONT SUBST) Nicotine Polacrilex 2 mg 08/29/16 16:23 09/05/16 10:12 Nicorette Gum - BUC 2 mg Q2H PRN Administration NICOTINE REPLACEMENT RX Multivit/Folic Acid/Iron 1 tab 08/30/16 10:00 09/11/16 10:04 Vitamins (Sj[facility]) - PO 1 tab DAILY DARNELL Administration Pseudoephedrine/Triprolidine 1 combo 08/29/16 16:23 Actifed - PO TID PRN NASAL CONGESTION Quetiapine Fumarate 400 mg 08/29/16 22:00 09/11/16 21:34 Seroquel - PO 400 mg HS DARNELL Administration Thiamine HCl 100 mg 08/29/16 22:00 09/11/16 21:34 Vitamin B1 - PO 100 mg HS DARNELL Administration Current Side Effect: No Lab tests ordered: Yes Lab tests reviewed: Yes Provider note:: Patient has completed this program today. He has met his treatment goals and will continue to address his issues in outpatient treatment at [facility]. Told food writer that from his participation in this program, he has learned the importance of establising a sober support network in order to maintain sobriety. He responded well to Seroquel 400 mg po HS. Script for that medication is electronically transmitted to [facility] at [address] [place] [address]. He is stable for discharge today Total face to face time:: 35 Mental Status Exam - Mental Status Exam Alert and Oriented to: Time, Place, Person Cognitive Function: Fair Mood: Hopeful, Euthymic Affect: Appropriate Patient Behavior: Cooperative Speech Pattern: Clear Voice Loudness: Normal Thought Process: Intact Thought Disorder: Not Present Hallucinations: Denies Suicidal Ideation: Denies Homicidal Ideation: Denies Insight/Judgement: Fair Sleep: Fair Appetite: Good Muscle strength/Tone: Normal Gait/Station: Normal Psychiatric Treatment Plan - Problem List (1) Alcohol dependence with uncomplicated withdrawal Current Visit: No (2) Cannabis dependence Current Visit: Yes (3) Nicotine dependence Current Visit: No Qualifiers: Nicotine product type: cigarettes Substance use status: uncomplicated Qualified Code(s): F17.210 - Nicotine dependence, cigarettes, uncomplicated (4) Bipolar I disorder Current Visit: Yes (5) Substance induced mood disorder Current Visit: No Initial treatment plan: Patient is discharged today and referred to [facility] for outpatient treatment
[2016-09-12] MEDS: PRENATAL VITAMINS W/ FOLIC ACID TABLET (FP) PO SCH (09:43)
== END 2016-09-12 10:45 | disposition home or self-care (01) | DRG 775 ==
LOC: YASAS 11:29 → Y5N 11:30
PROVIDERS: ADMIT Psychiatry & Neurology Psychiatry; ATTEND Psychiatry & Neurology Psychiatry
PROC: HZ2ZZZZ Detoxification Services for Substance Abuse Treatment (ICD-10-PCS; principal; 2016-09-12)
DX: F10.230 Alcohol dependence with withdrawal, uncomplicated (principal); F12.20 Cannabis dependence, uncomplicated; F17.210 Nicotine dependence, cigarettes, uncomplicated; F19.24 Other psychoactive substance dependence with psychoactive substance-induced mood disorder; F31.9 Bipolar disorder, unspecified